=== PATIENT | male | born 1970 | race Caucasian/White ===

== ENCOUNTER → 2016-08-09 | Outpatient (CLI) | payer BC ==
--- NOTE | ~2016-08-09 | MR60 ---
[facility]. [facility] A Service of [facility] & [facility] RADIOLOGY TEXT RESULTS PATIENT: PETER WADSWORTH LOCATION: [facility] : 74 UNIT #: [id number] AGE: [address]: Ana Nichols MD SEX: M ORDER DR: [id number] [address] [address] [id number] O MR#: [id number] Acc #: [id number] NAME: PETER WADSWORTH : 1970 SEX: M STUDY DATE/TIME: 08/09/2016 15:44 UNIT: [facility] ROOM: STUDY DESCRIPTION: MR Foot Wo Contrast Lt Attending Physician: Ana Nichols M.D. Referring Physician: Ana Nichols M.D. Ordering Physician: Ana Nichols M.D. Primary Care Physician: Ana Nichols M.D. MRI CENTER REPORT This report is preliminary unless electronic signature is present. EXAM MRI left foot - attention midfoot without contrast 08/09/2016. COMPARISON Left foot radiographs 08/07/2016 and MRI left ankle 08/09/2016. HISTORY Order states left foot, ankle pain. History sheet states status post injury 2 days ago - rolled the foot and felt a pop. 2 gel caps over the area of maximum pain. Bilateral foot pain for years. Took dog out in the middle the night and stepped wrong and felt a pop. Lateral ankle and lateral foot pain. No related surgery. FINDINGS The exam was ordered and performed as 2 studies. See separate MRI ankle hindfoot report. As noted on the ankle hindfoot report, the predominant acute abnormality is a high-grade partial near complete peroneus longus tendon tear in the lateral plantar midfoot for a length of approximately 3.6 cm. First metatarsal and medial cuneiform insertions are maintained. Please see separate MRI left ankle hindfoot report for more proximal peroneus brevis and longus tendon findings. Peroneus brevis tendon insertion at the base of the fifth metatarsal is intact. There is no fracture or marrow lesion. Cystic focus in the fourth metatarsal base is likely arthritic. There is no fracture. No muscle atrophy is noted. IMPRESSION 1. As also reported on the MRI ankle hindfoot, there is a high-grade partial longitudinal 3.6 cm in length. The plantar lateral midfoot STS. [facility] A Service of [facility] & [facility] RADIOLOGY TEXT RESULTS PATIENT: PETER WADSWORTH LOCATION: [facility] : 74 UNIT #: [id number] AGE: [address]: Ana Nichols MD SEX: M ORDER DR: peroneus longus tendon tear with prominent surrounding edema as the acute finding. 2. No fracture. 3. Cystic focus base of fourth metatarsal likely arthritic. 4. Please see separate MRI left ankle hindfoot report for more proximal peroneal tendon and ankle ligament pathology. 1. Dictated by... Magaly Wolf M.D. THIS IS AN ELECTRONICALLY VERIFIED REPORT Magaly Wolf M.D. at 08/13/2016 2:13 PM ELOISA/azucena TD: 08/10/2016 12:27 JOB #: [id number] MRI CENTER REPORT Page 1 of 1
--- NOTE | ~2016-08-09 | MR10 ---
[facility]. [facility] A Service of [facility] & [facility] RADIOLOGY TEXT RESULTS PATIENT: PETER WADSWORTH LOCATION: [facility] : 74 UNIT #: [id number] AGE: [address]: Ana Nichols MD SEX: M ORDER DR: [id number] [address] [address] [id number] O MR#: [id number] Acc #: [id number] NAME: PETER WADSWORTH : 1970 SEX: M STUDY DATE/TIME: 08/09/2016 15:17 UNIT: [facility] ROOM: STUDY DESCRIPTION: MR Ankle Wo Contrast Lt Attending Physician: Ana Nichols M.D. Referring Physician: Ana Nichols M.D. Ordering Physician: Ana Nichols M.D. Primary Care Physician: Ana Nichols M.D. MRI CENTER REPORT This report is preliminary unless electronic signature is present. EXAM MRI left ankle/hindfoot without contrast, 08/09/2016. COMPARISON MRI of the left midfoot 08/09/2016, left foot radiographs 08/07/2016 and office notes [facility] Practitioners dated 08/08/2016. HISTORY Order states left foot/ankle pain. History sheet states injured 2 days ago. Rolled foot and felt a pop. Gel marker at the area of most pain. Patient states foot pain for years. Took dog out in the middle of the night, stepped the wrong way and felt a pop in the foot. Scheduled are two exams. Lateral ankle and lateral foot pain. FINDINGS The tibiotalar joint shows no effusion, fracture, chondral/osteochondral lesion, or a loose body. The anterior and posterior tibiofibular and posterior talofibular ligaments are intact. There is lack of definition of the anterior talofibular ligament without soft tissue edema suggestive of sequela of chronic high-grade injury. There is attenuation of the superior aspect of the calcaneofibular ligament without significant soft tissue edema, again suggesting sequela of chronic injury. The anterior extensor tendons are intact. Probable small synovial cyst or ganglion measuring 19 mm AP x 9 mm transverse, just deep to the insertional tibialis anterior tendon near the medial cuneiform, likely reflects a small synovial or ganglion cyst. This may be of no current clinical significance. The medial flexor and Achilles tendons are normal. There is high-grade tendinosis and longitudinal split tear of the peroneus brevis tendon in its retromalleolar and inframalleolar segment with a STS. [facility] A Service of [facility] RADIOLOGY TEXT RESULTS PATIENT: PETER WADSWORTH LOCATION: [facility] : 74 UNIT #: [id number] AGE: [address]: Ana Nichols MD SEX: M ORDER DR: raciel present for a length of approximately at 2.8 cm. There is mild retromalleolar peroneal tenosynovitis and peroneus longus tendinosis without a retromalleolar peroneus longus tendon tear. Likely representing the recent abnormality given moderate soft tissue edema is a high-grade partial longitudinal tear of the peroneus longus tendon measuring 3-4 cm in length, plantar to the distal cuboid and extending into the plantar midfoot. Its first metatarsal and medial cuneiform attachments appear maintained. There is moderate surrounding soft tissue edema. See MRI midfoot for additional midfoot specifics. Plantar fascia is intact. Plantar calcaneal enthesophyte is noted without tear or inflammatory component. Sinus tarsi and tarsal tunnel are unremarkable. No marrow lesion or fracture is noted. There is a small os peroneum within the substance of the peroneus longus tendon proximal to the partial midfoot tear. IMPRESSION 1. The predominant apparent recent abnormality is a high-grade partial longitudinal tear of the peroneus longus tendon in the plantar midfoot measuring 3.6 cm in length at the level of the distal cuboid and plantar lateral midfoot. The first metatarsal base and medial cuneiform insertions are not detached. Surrounding soft tissue edema. See separate MRI mid foot report for additional midfoot findings. 2. Chronic-appearing attenuation of the anterior talofibular and calcaneofibular ligaments, likely sequela of old injury. 3. Retromalleolar peroneus longus tendinosis and peroneal tenosynovitis without proximal tear. 4. High-grade tendinosis and longitudinal interstitial split tear peroneus brevis tendon in its retromalleolar and proximal inframalleolar segments for a length of 2.8 cm. 5. Small likely incidental synovial cyst or ganglion measures 19 x 9 mm along the dorsomedial midfoot detailed above. 6. Chronic plantar fasciopathy. Dictated by... Magaly Wolf M.D. THIS IS AN ELECTRONICALLY VERIFIED REPORT Magaly Wolf M.D. at 08/13/2016 2:13 PM [facility]/tmw STS. [facility] A Service of [facility] & [facility] RADIOLOGY TEXT RESULTS PATIENT: PETER WADSWORTH [id number] 74 UNIT #: [id number] AGE: [address]: Ana Nichols MD SEX: M ORDER DR: TD: 08/10/2016 12:05 JOB #: [id number] MRI CENTER REPORT Page 1 of 1
== END | disposition home or self-care (01) ==
LOC: SMRI 14:17
DX: M79.672 Pain in left foot (principal); M25.572 Pain in left ankle and joints of left foot; S86.312A Strain of muscle(s) and tendon(s) of peroneal muscle group at lower leg level, left leg, initial encounter; M79.89 Other specified soft tissue disorders; M65.9 Synovitis and tenosynovitis, unspecified; M76.72 Peroneal tendinitis, left leg; M72.2 Plantar fascial fibromatosis
CPT/HCPCS: 73718; 73721